=== PATIENT | female | born 2000 | race Caucasian/White ===

== ENCOUNTER → 2019-10-07 16:41 | Outpatient (CLI) | payer BC, SELFPAY ==
[2019-10-07 15:24] VITALS: BMI 43.2
[2019-10-14 15:34] LABS: HPV Reflexed? NOT INDICATED
== END ==
PROVIDERS: Family Provider Family Medicine; PCP Family Medicine; Referring Provider Obstetrics & Gynecology; Visit Provider Obstetrics & Gynecology
DX: Z12.4 Encounter for screening for malignant neoplasm of cervix (principal)
CPT/HCPCS: 88175; G0145

== ENCOUNTER → 2020-11-01 16:48 | Outpatient (CLI) | payer BC, SELFPAY ==
[2020-11-01 15:01] VITALS: BMI 49.3
[2020-11-04 09:50] LABS: HPV Reflexed? NOT INDICATED
== END ==
PROVIDERS: Visit Provider Obstetrics & Gynecology
DX: Z12.4 Encounter for screening for malignant neoplasm of cervix (principal)
CPT/HCPCS: 88175; G0145

== ENCOUNTER 2022-02-20 18:18 | Outpatient (CLI) | payer BC, SELFPAY ==
[2022-02-26 15:58] LABS: HPV Reflexed? NOT INDICATED
== END 2022-02-20 23:59 | disposition home or self-care (01) ==
PROVIDERS: Visit Provider Obstetrics & Gynecology
DX: Z12.4 Encounter for screening for malignant neoplasm of cervix (principal)
CPT/HCPCS: 88175; G0145

== ENCOUNTER → 2023-02-28 | Outpatient (CLI) | payer BC, SELFPAY ==
--- NOTE | 2023-02-28 08:53 | US_ITS ---
STUDY: ULTRASOUND OF THE FEMALE PELVIS - COMPLETE REASON FOR EXAM: Female, 23 years old. Pelvic pain/aub LMP: February 25, 2023. TECHNIQUE: Transvaginal TECHNICAL QUALITY: Adequate. COMPARISON: None. FINDINGS: The uterus is anteverted and is in a midline position. The uterus measures 8.7 cm x 4.9 cm x 4.5 cm. There is a Nabothian cyst of the cervix. The endometrium measures 4 mm in thickness, and is hyperechoic. There is no demonstrated endometrial mass. There is no demonstrated myometrial mass. I.U.D. - The patient does not have an I.U.D. The right ovary is visualized. The right ovary measures 2.9 cm x 1.9 cm x 1.8 cm. There is no right ovarian cyst or ovarian mass. There is no visualized right adnexal mass or complex lesion. There is normal arterial and normal venous vascularity. The left ovary is visualized. The left ovary measures 3.3 cm x 2.9 cm x 1.6 cm. There is no left ovarian cyst or ovarian mass. There is no visualized left adnexal mass or complex lesion. There is normal arterial and normal venous vascularity. There is no fluid in the cul-de-sac. US/Transvaginal Non- IMPRESSION: Normal menopausal female pelvis. Electronically Signed: Baudilio Petersen MD at 15:36 EDT ,
== END | disposition home or self-care (01) ==
LOC: US 08:49
PROVIDERS: Visit Provider Obstetrics & Gynecology
DX: R10.2 Pelvic and perineal pain (principal)
CPT/HCPCS: 76830; 93976

== ENCOUNTER 2024-01-21 06:03 | Day surgery (SDC) | payer BC, SELFPAY ==
[2024-01-21] VITALS (10 sets, daily range): BP systolic 105–149; BP diastolic 61–98; PULSE 86–102; RESP 14–18; TEMP 36.2–36.8; O2SAT 94–100; BMI 44.1
--- OUTSIDE RECORDS SUMMARY | 2024-01-21 06:07 | XMS RPT_ITS | CCD ---
Author Name Unknown Address [facility] [place] [address] Organization [facility] Care Team Providers Care Supervisor Painting Shipyard Name Role Phone AMERICA Wagner RN, Lenora Holder Unavailable Unavailviridiana Hollis NP, Cindi Lorenzo Unavailable Gisela, Yvette Martel Unavailable Unavailable Felgar, Yvette C Unavailable Unavailable TESTRAKE, CORTNEY Unavailable Unavailable TESTRAKE, CORTNEY Unavailable Unavailable TESTRAKE, CORTNEY Unavailable Unavailable TESTRAKE, CORTNEY Unavailable Unavailable TESTRAKE, CORTNEY Unavailable Unavailable JARON LOWE Consulting Unavailable MCKINLEY COPPOLA PA-C Attending Delfino RICHARD MD, SUDHEER Primary Care Unavailable MCKINLEY COPPOLA PA-C Attending Delfino RICHARD MD, SUDHEER Primary Care Unavailable JOSE MANUEL KEYS, SUDHEER Attending Unavailable JOSE MANUEL KEYS, SUDHEER Primary Care Unavailable JOSE MANUEL KEYS, SUDHEER Attending Unavailable JOSE MANUEL KEYS, SUDHEER Primary Care Unavailable Allergies Allergy Classification Reported Allergen(s) Allergy Type Date of Onset Reaction(s) Facility (4 sources) sulfamethoxazole / trimethoprim Drug Allergy 7 unsure [facility] [place] (1 source) sulfamethoxazole; Translations: [SULFAMETHOXAZOLE] Drug Allergy 3 AOF [facility] Repository Medications Completed/Discontinued Medications Medication Drug Class(es) Dates Sig (Normalized) Sig (Original) acetaminophen 325 mg oral tablet (4 sources) Start: 10-21-2017 TYLENOL 325 MG TABS as needed ACETAMINOPHEN [id number] Yvette Higgins levonorgestrel 0.830799 mg/hr intrauterine system (4 sources) Progestin, Progestin-containi ng Intrauterine Device Start: 10-21-2017 MIRENA (52 MG) 20 MCG/24HR IUD 05/2017 LEVONORGESTREL [id number] Yvette Higgins Problems Active Problems Problem Classification Problem Date Documented Da te Episodic/Chronic Gastritis and duodenitis (2 sources) Other gastritis without bleeding; Translations: [Other gastritis without bleeding] Onset: 10-23-2023 Episodic Other nutritional; endocrine; and metabolic disorders (2 sources) Body mass index (BMI) 50.0-59.9, adult; Translations: [Body mass index [BMI] 50.0-59.9, adult] Onset: 03-14-2023 Chronic Past or Other Problems Problem Classification Problem Date Documented Date Episodic/Chronic Contraceptive and procreative management (4 sources) IUD check; Translations: [Encounter for routine checking of intrauterine contraceptive device] Onset: 10-21-2017 10-21-2017 Episodic Immunizations and screening for infectious disease (2 sources) Contact with and (suspected) exposure to viral hepatitis; Translations: [Contact with and (suspected) exposure to viral hepatitis] Onset: 03-14-2023 Episodic Unclassified (1 source) EAR PAIN Onset: 05-24-2023 Results Test Name Value Interpretation Reference Range Facil ity Vital Signs Date Time Vital Sign Value Performing Clinician Nae riddle 10-21-2017 13:42-0500 BMI (Body Mass Index) 43.67 kg/m2 Yvette Higgins [facility] [place] 10-21-2017 13:42-0500 BP Diastolic 68 mm[Hg] Yvette Higgins [facility] 10-21-2017 13:42-0500 BP Systolic 124 mm[Hg] Yvette Higgins [facility] 10-21-2017 13:42-0500 Height 171.45 cm Yvette Higgins [facility] 10-21-2017 13:42-0500 Weight 128.37 kg Yvette Higgins [facility] Encounters Encounter Date Encounter Type Care Provider Facility Start: 10-23-2023 End: 10-28-2023 ambulatory MCKINLEY COPPOLA PA-C Facility:[facility] Start: 05-24-2023 End: 05-24-2023 Emergency department patient visit JARON LOWE Facility:[facility] Start: 03-14-2023 End: 03-19-2023 Encounter for general adult medical examination with abnormal findings SUDHEER RICHARD MD Facility:[facility] Start: 03-14-2023 End: 03-19-2023 ambulatory SUDHEER RICHARD MD Facility:[facility] Start: 12-18-2017 End: 12-18-2017 Ambulatory CORTNEY BRENNER [facility] Start: 12-05-2017 End: 12-10-2017 Ambulatory CORTNEY BRENNER [facility] Start: 11-20-2017 End: 11-20-2017 Ambulatory CORTNEY SHENBRITTON [facility] Plan of Treatment Date Care Activity Detail Author Start: 10-31-2017 End: 10-31-2017 Appointment Appointment [facility] Work Phone: Start: 10-21-2017 End: 10-21-2017 Us pelvic nonobstetric real-time image complete US Pelvis [facility] [place] Start: 10-21-2017 End: 10-21-2017 Us transvaginal US Transvaginal [facility] Start: 10-21-2017 End: 10-21-2017 Appointment Appointment [facility] Payers Date Payer Category Payer Unknown [id number] 1998 Unknown [id number] 1998 Unknown [id number] [id number] 1998 Unknown [id number] [id number] [id number] 1998 Unknown [id number] 2.16.8 [id number] Unknown [id number] 2.16.8 [id number] Summary Purpose Family History No Family History Records FoundNo Family History Records FoundNo Family History Records Found Advance Directives No Advanced Directives Records FoundNo Advanced Directives Records FoundNo Advanced Directives Records Found Additional Source Comments INFORMATION SOURCE (unrecogn ized section and content) DATE CREATED AUTHOR AUTHOR'S ORGANIZ ATION 05/25/2023 [facility] DATE CREATED AUTHOR AUTHOR'S ORGANIZ ATION 10/28/2023 [facility] ([place]) FOR RECORDS PERTAINING TO PATIENTS WHO ARE OR HAVE BEEN ENROLLED IN A CHEMICAL DEPENDENCY/SUBSTANCEABUSE PROGRAM, SOME INFORMATION MAY BE OMITTED. This clinical summary was aggregated from multiple sources. Caution should be exercised in using it in the provision of clinical care. This summary normalizes information from multiple sources, and as a consequence, information in this document may materially change the coding, format and clinical context of patient data. In addition, data may be omitted in some cases. CLINICAL DECISIONS SHOULD BE BASED ON THE PRIMARY CLINICAL RECORDS. [facility]. provides no warranty or guarantee of the accuracy or completeness of information in this document.
[2024-01-21] MEDS: Lactated Ringers 1,000 ML 15 ML IV (06:35)
[2024-01-21 06:43] LABS: Hematocrit 42.1 % (37-47); Hemoglobin 13.6 g/dL (12.0-15.0); Mean Corp Hgb Conc 32.3 g/dL (32-36); Mean Corpuscular Hgb 29.4 pg (27.0-32.0); Mean Corpuscular Volume 90.9 fL (81-99); Mean Platelet Vol. 10.3 fl (6.2-12.0); Platelet Count 257 K/mm3 (150-450); RBC Distribution Width CV 14.3 % (11.6-14.6); RBC Distribution Width SD 47.2 fl (35.1-43.9); Red Blood Count 4.63 M/mm3 (4.2-5.4); White Blood Count 7.9 K/mm3 (4.4-11.0)
[2024-01-21 06:45] LABS: Internal QC Validated? YES +Cl - CLEAR BKGD; Pregnancy, Urine Negative Negative
--- NOTE | 2024-01-21 07:27 | PCM.HP.BLA ---
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 Is patient in pain?: No Allergies sulfamethoxazole [From Bactrim] Allergy (Intermediate, Verified 12/05/23 11:11) allergytrimethoprim [From Bactrim] Allergy (Intermediate, Verified 12/05/23 11:11) allergy Medications bupropion HCl 300 mg 24 hr tablet, extended release 300 mg PO QAM #30 tabs 10/22/23 [Rx Confirmed 12/05/23] Is last menstrual period known: No Post menopausal: No Patient : No : No PFSH Medical History Anxiety and depression Anxiety with depression Family History Grandmother Heart diseaseGrandfather Heart disease Social History Smoking Status: Never smoker alcohol intake: current details: occasionally substance use type: does not use caffeine: Yes what type of physical activity do you participate in: aerobics frequency: 3-4 times per week duration: 45-60 minutes/day seatbelt use: always do you feel safe at home: Yes additional social history: 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 desired sterilization. Female Reproductive History Menopausal Symptoms: No hot flashes, No night sweats, No difficulty concentrating and No change in libido History 0 Elective abortions Hx Para Spontaneous abortions Hx # Term Pregnancies Ectopic pregnancies Hx # Pregnancies Multiple births # of living children ROS Const Constitutional: Reports as per HPI; Denies fatigue, increased appetite, poor appetite, night sweats, weight gain or weight loss ENT ENT: Reports system reviewed and no additional complaints, except as documented Cardio Card: Denies chest pain Resp Resp: Denies cough or dyspnea GI GI: Reports as per HPI; Denies abdominal pain, bloating, constipation, nausea or vomiting : Reports as per HPI and other; Denies difficulty voiding, dysuria, hematuria, hot flashes, nipple discharge, pelvic pain, prolapse symptoms, urinary frequency, urinary incontinence, urinary urgency, vaginal discharge, vaginal dryness, vaginal odor or vaginal pruritus Musc Musc: Denies arthralgias, back pain or muscle weakness Skin Skin/Breast: Denies changing lesions, breast mass, breast pain, breast skin changes or nipple discharge Neuro Neuro: Reports system reviewed and no additional complaints, except as documented Psych Psych: Denies anxiety, change in libido, depression or difficulty concentrating Endo Endo: Denies cold intolerance, excessive sweating, heat intolerance or polydipsia Tony/Lymph Hematologic/Lymphatic: Denies easy bleeding, Denies easy bruising and Denies lymphadenopathy Exam Const General: cooperative, healthy appearing, comfortable and no acute distress Orientation: alert HENID Head: normal to inspection and normocephalic Ears: hearing grossly normal bilaterally and external ears normal Nose: external nose normal and nares normal Face and sinus: normal facial exam Neck Neck: normal visual inspection and no lymphadenopathy Thyroid: thyroid normal Chest Chest palpation & inspection: normal inspection of the chest Resp Effort & Inspection: normal respiratory effort Auscultation: clear to auscultation bilaterally Cardio Rate: regular rate Rhythm: regular rhythm Heart Sounds: S1 normal and S2 normal GI Inspection: normal to inspection and non-distended Palpation: soft and no hepatosplenomegaly Musc Other: gross motor intact no deficits, full bilateral strength Skin General: no rashes or lesions noted Neuro General: patient alert, patient awake, moves all extremities and no focal motor deficits Motor: muscle tone normal throughout Extrem General: normal to inspection and no pedal edema Psych Appearance: grossly normal Mental Status: mental status grossly normal Affect: normal affect Speech and Movement: speech and movement normal Coding Level of Care Code No Charge Diagnoses Sterilization Z30.2 Assessment and Plan Assessment and Plan (1) Sterilization: Status: Acute Comment: laparosocpic bs Plan After discussing the patient's diagnosis and treatment plan options, patient wishes to proceed with surgical management. I have discussed with the patient the risks, benefits, and alternatives of the procedure which include but are not limited to risks of anesthesia, bleeding, infection, possible damage to bowel, bladder, or surrounding vasculature which could lead to additional surgery to evaluate any complications. Patient agrees to procedure and wishes to proceed. ACOG/uptodate references given for additional information regarding procedure. UPDATE- I have seen the patient and performed any clinically relevant updates to the history and physical exam. Manju Valles MD
[2024-01-21] MEDS: Bupivacaine 0.25% 30 ML Vial (09:05)
--- NOTE | 2024-01-21 10:45 | PCM.OPRPT ---
Problems Associated Problem List Diagnoses (1) Sterilization: (2) Class 3 obesity: Report of Operation Date of Procedure: 01/21/24 Pre-Operative Diagnosis: see problem list Post-Operative Diagnosis: same Surgery/Procedure Performed:: Laparoscopic tubal ligation Filshie clips Description of Surgical Findings:: nl uterus tubes ovaries Surgeon: Manju Valles Type of Anesthesia: General and Local Special Medications: Floseal at umbilicus Specimen's removed: None Drains: none Estimated Blood Loss (mL): 50 Fluids Replaced: crystalloid Description of Procedure: Patient was taken in the operating room and was placed under general anesthesia was prepped and draped in normal sterile fashion in the dorsal lithotomy position. Bladder was drained of clear urine and SCDs were on preoperatively. Uterus was sounded and a uterine manipulator was placed after dilating. Attention was then paid to the abdominal portion of the procedure and the umbilicus was elevated with towel clamps and injected with Marcaine and after a 5 mm incision was made and the Veress needle was entered into the abdomen unable to be confirmed to be intra-abdominal due to maternal body habitus and deep umbilicus. Attempt was made with also followed larger Veress needle but the planes were still not felt to be easily reached and therefore this approach was aborted. Attempt was then made in the left upper quadrant with the regular Veress needle however it was not felt to be deep enough in the correct tissue plane was not entered. The decision was then made to go back to the umbilicus and proceed with the Barrios technique. Direct dissection was made through a supraumbilical incision down to the level of the fascia. Fascia was identified and elevated and incised. Abdomen was entered and barrios trocar was placed and the abdomen was insufflated with CO2 gas . A 5 mm port suprapubically was placed under direct visualization. Uterus was well visualized and bilateral fallopian tubes identified and bilateral Filshie clips were applied across the mid interstitial portion of the fallopian tube without complication. Excellent hemostasis was noted. Liver and upper abdomen were visualized notably within normal limits and no other gross abnormalities were seen in the abdomen. All instruments removed from the abdomen after gas was desufflated. Fascia was closed directly with 0 Vicryl. Port sites were closed with 4-0 Monocryl and Dermabond. Additional bleeding was noted at the umbilical site therefore this was reopened and additional sutures across the fascia and rectus bellies were used. Copious irrigation and then Floseal was applied. Excellent hemostasis was noted. The skin was then reclosed at the umbilicus and Dermabond applied. Pressure dressing applied to the area and all instruments removed from the vagina and patient was awoken and taken recovery in stable condition. Grafts/Implants Used: none Procedure Start Time: 08:11 Procedure Stop Time: 09:32 Complications none Admit VTE Documentation VTE Present on Admission: No VTE Mechan Device Prophylaxis: SCD's Multi Select Codes Urinary/Genital Urinary/Genital CPT Codes: 93763 OCCLUDE FALLOPIAN TUBE BY DEVICE
--- NOTE | 2024-01-21 10:47 | DCINST_ITS ---
Discharge Instructions Diet Discharge Diet: No restrictions Activity Discharge Activity: Return to Normal Activity, May Not Drive (for 2 weeks or while taking narcotic pain meds.), May Shower and May Take a Tub Bath (in 7 days) May resume sexual activity in: 1 week Weight Bearing Status: Full weight bearing Dressing / Incision Call your doctor if your incision/area has: Continuous Slow Oozing, Sudden Increased Bleeding, Increased Pain/ Swelling, Increased Redness and Foul Smelling Discharge Call your doctor if you observe: Fever of 101 or Higher, Using more than 1 pad per hour, Shortness of breath, Chest pain and Uncontrolled pain Suture Line Care: Avoid Pulling/Pushing and Avoid Pinching/Bending Remove Dressing in: 1 week (if present) Cleanse incision/area with: Soap & Water and Keep Dressing Clean & Dry Follow Up Care When: Call to make an appointment with your doctor for a fu/incision check in 1- 2 weeks. Test Results: Test results from this visit will be discussed in further detail at your follow- up appointment, if applicable. Discharge Plan Admission Attending Provider: Manju Valles Primary Care Provider: SUDHEER RICHARD Discharge Orders/Prescriptions Prescriptions: New oxycodone-acetaminophen [Percocet] 5-325 mg tablet 1 tab PO Q6H PRN (Reason: pain) 7 Days Qty: 20 0RF naproxen [naproxen] 500 mg tablet 500 mg PO BID PRN PRN (Reason: Pain) Qty: 30 1RF No Action omeprazole 20 mg capsule,delayed release(DR/EC) 20 mg PO DAILY Patient Comments: TAKE 1 CAPSULE BY MOUTH ONCE DAILY 30 MINUTES BEFORE MORNING MEAL FOR GASTROESOPHAGEAL REFLUX DISEASE sucralfate 1 gram tablet 1 g PO .4 TIMES DAILY Patient Comments: TAKE 1 TABLET BY MOUTH ON AN EMPTY STOMACH 4 TIMES DAILY ONE HOUR BEFORE MEALS AND AT BEDTIME bupropion HCl 300 mg tablet extended release 24 hr 300 mg PO QAM Qty: 30 12RF Referrals / Follow Up: Care Physician,No Primary [Non-Staff] - Disposition Disposition (needs filled in before D/C Order can be placed): Home, Self Care
[2024-01-21] MEDS: Oxycodone/Apap 5/325 Tablet PO (11:48)
== END 2024-01-21 12:45 | disposition home or self-care (01) ==
LOC: SDC 06:05 → AC 06:06
PROVIDERS: Referring Provider Obstetrics & Gynecology; Visit Provider Obstetrics & Gynecology
PROC: (CPT 58661; principal; 2024-01-21 07:15)
DX: Z30.2 Encounter for sterilization (principal); Z68.41 Body mass index [BMI] 40.0-44.9, adult; E66.9 Obesity, unspecified; F41.9 Anxiety disorder, unspecified; F32.A Depression, unspecified; Z79.899 Other long term (current) drug therapy
CPT/HCPCS: 58615; 00851; 81025; 85027; 86850; 86900; 86901; J7120; J2405

== ENCOUNTER 2024-01-25 16:58 | Emergency (ER) | payer BC, SELFPAY ==
[2024-01-25 17:00] VITALS: BP 150/105; PULSE 142; RESP 18; TEMP 37.9; O2SAT 95; BMI 43.9
--- NOTE | 2024-01-25 17:30 | EKG12_ITS ---
Test Reason : POST OP PROBLEM Blood Pressure : / mmHG Vent. Rate : 133 BPM Atrial Rate : 133 BPM P-R Int : 132 ms QRS Dur : 090 ms QT Int : 292 ms P-R-T Axes : 036 017 055 degrees QTc Int : 434 ms Sinus tachycardia Cannot rule out Anterior infarct , age undetermined Abnormal ECG Confirmed by CHYNA KEYS, SAILAJA ([id number]), purchasing expeditor FRANKY WILDER ([id number]) on 01/27/2024 9:32:16 AM Referred By: Confirmed By:SAILAJA CLEMENTE MD
--- NOTE | 2024-01-25 17:30 | CT_ITS ---
STUDY: CT ABDOMEN AND PELVIS WITH CONTRAST REASON FOR EXAM: Female, 23 years old. abd pain post up Tubal w/ clips RADIATION DOSAGE (If Supplied By Facility): CTDIvol = ( 21.75 ) mGy, DLP = ( 1952.02 ) mGycm TECHNIQUE: Transaxial images were obtained from the dome of the diaphragm to the symphysis pubis without oral contrast. IV 100mL Isovue-370 was administered. Sagittal and coronal images were reconstructed. Individualized dose optimization techniques were used for this CT. COMPARISON: None. FINDINGS: Small bilateral pleural effusions with some bibasilar atelectasis. Small pericardial effusion. Normal liver. Normal gallbladder and extrahepatic biliary system. There is moderate splenomegaly. Normal pancreas. Normal bilateral adrenal glands. Normal right kidney. Normal left kidney. Normal visualized stomach. Normal small intestine. Normal colon. There is non-visualization of the appendix. Normal abdominal aorta. Normal inferior vena cava. Normal retroperitoneum. Normal urinary bladder. Status post recent bilateral tubal ligation with subcutaneous emphysema within the anterior abdominal wall, a tiny amount of pneumoperitoneum, and a small amount of free fluid in the pelvis. Normal abdominal wall. Normal osseous structures. CT/Abdomen/Pelvis W IV Cont ONLY IMPRESSION: 1. Status post recent bilateral tubal ligation with postoperative gas and fluid but no well-defined postoperative fluid collection. 2. Moderate splenomegaly. 3. Small bilateral pleural effusions with bibasilar atelectasis. 4. Small pericardial effusion. Electronically Signed: Herve Soto MD at 19:31 EST ,
--- NOTE | 2024-01-25 17:33 | EX.ED.DYSGE1 ---
HPI History of Present Illness Chief Complaint: Fever Informant: patient and spouse/S.O. Onset/Context/Timing Onset: Days Context: Gradual Onset Timing: Continuous Current Severity: Moderate Maximum Severity: Moderate Narrative Narrative: 23-year-old female no seen past medical history on Saturday had tubal ligation done by Dr. Manju Valles of [employer] using clips. Patient was doing well. On started having low-grade fever 100.3 with low back pain and abdominal pain. She denies any cough. She also states that she has some dysuria. Her temperature at home has been as high as 101.5. Prior similar symptoms: No Recent Illness/Hospitalization: No PFSH PFSH Medical History Alcohol use Anxiety Anxiety and depression Anxiety with depression Depression History of ulceration MRSA infection Non-smoker Restless legs Wears glasses Home Medications bupropion HCl 300 mg 24 hr tablet, extended release 300 mg PO QAM #30 tabs 10/22/23 [Rx Last Taken Unknown] omeprazole 20 mg capsule,delayed release 20 mg PO DAILY 01/13/24 [History Last Taken Unknown] sucralfate 1 gram tablet 1 g PO .4 TIMES DAILY 01/13/24 [History Last Taken Unknown] naproxen 500 mg tablet 500 mg PO BID PRN PRN Pain #30 tabs 01/21/24 [Rx Last Taken Unknown] oxycodone-acetaminophen 5 mg-325 mg tablet (Percocet) 1 tab PO Q6H PRN pain 7 days #20 tabs 01/21/24 [Rx Last Taken Unknown] oxycodone 5 mg capsule 5 mg PO Q4H PRN pain 3 days #10 caps 01/25/24 [Rx Last Taken Unknown] Allergy/AdvReac Type Severity Reaction Status Date / Time sulfamethoxazole Allergy Intermediate allergy Verified 01/25/24 17:00 [From Bactrim] trimethoprim [From Bactrim] Allergy Intermediate allergy Verified 01/25/24 17:00 Family History Grandmother Heart disease Grandfather Heart disease Social History Smoking Status: Never smoker alcohol intake: current details: occasionally substance use type: does not use caffeine: Yes what type of physical activity do you participate in: aerobics frequency: 3-4 times per week duration: 45-60 minutes/day seatbelt use: always do you feel safe at home: Yes 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 Abdominal pain. Back pain. Dysuria. Review of Systems ROS Unobtainable: Denies due to encephalopathy Constitutional Constitutional ED: Reports chills and fever(s) Eyes Eyes: Denies blurry vision ENT ENT ED: Denies ear pain Cardiovascular Cardiovascular: Denies chest pain or palpitations Respiratory/Chest Respiratory/Chest: Reports other Details: Patient has periumbilical incisional pain when she breathes but denies shortness of breath or chest pain or any hemoptysis. ; Denies cough or dyspnea Gastrointestinal Gastrointestinal: Reports abdominal pain and nausea; Denies constipation, diarrhea, melena or vomiting Genitourinary Genitourinary ED: Reports dysuria and hematuria Musculoskeletal Musculoskeletal: Reports back pain; Denies arthralgias Integumentary Denies abscess Neurologic Neurologic: Denies headache(s) Psychiatric Psychiatric: Denies anxiety Endocrine Endocrinology: Denies cold intolerance Hematologic/Lymphatic Hematologic/Lymphatic: Reports none Allergic/Immunologic Allergic/Immunologic ED: Denies mouth swelling, tongue swelling or urticaria EXAM Physical Exam Narrative Exam Narrative: 23-year-old female vital signs are stable other than she is tachycardic 142 and has a temperature of 100.3. Pulse ox 95% on room air no signs hypoxia. H EENT exam dry mucous membranes. Neck nontender no JVD. Lungs clear to auscultation bilaterally. Heart tachycardic no murmur. Chest wall nontender. Abdomen soft tender primarily under her umbilicus. She has a well-healed surgical incision and dressing on. No discharge. No cellulitis. No distention. No right upper or right lower quadrant tenderness. Moving all 4 extremities. Calves are nontender without edema or cords. Skin unremarkable. No rashes. Back she has right CVA tenderness. Neurologically she is awake and alert with no focal motor deficits. Clinically she looks like she is ill. Const Vital Signs: 01/25/24 17:00 01/25/24 17:40 01/25/24 19:59 Temperature 100.3 F H 99 F Temperature Source Temporal Oral Pulse Rate 142 H 113 H Respiratory Rate 18 16 Respiratory Effort Normal Respiratory Pattern Normal Blood Pressure 150/105 H 144/78 H Blood Pressure Mean 120 100 Pulse Ox 95 97 Oxygen Delivery Method Room Air Room Air Positive well nourished and well developed; Negative for cachectic, contractures or unkempt General Appearance ED: well developed; Negative for unkempt, cachectic, contractures, cyanotic, diaphoretic, NAD or pallor Nutritional Appearance: Negative for cachectic HEENT Reports dry mucous membranes; Denies moist mucous membranes Negative for trauma or tenderness Mouth ED: Yes dry mucous membranes Mouth: dry mucous membranes Eyes PERRL and EOMs intact bilaterally General Eye ED: Negative for pale conjunctiva or scleral icterus Neck no lymphadenopathy, supple and no JVD General: Negative for tenderness Chest Wall inspection of chest normal and palpation of chest normal Chest: Negative for other Resp normal respiratory effort and clear to auscultation bilaterally Effort and Inspection: Negative for retractions Auscultation: Negative for rales, rhonchi, wheezes or diminished lung sounds Cardio regular rhythm, S1 normal heart sound, S2 normal heart sound and no murmurs; Negative for regular rate Rate: tachycardic GI normal to inspection, nondistended, normoactive bowel sounds, non-distended and no masses; Negative for non-tender GI Narrative: Periumbilical tenderness. Well-healing surgical incision with dressing. No cellulitis. No distention. Both the right upper and right lower quadrants are unremarkable. No peritoneal signs. Auscultation: normoactive bowel sounds Palpation: soft and tender; Negative for guarding, splenomegaly, mass or rebound tenderness present Back/Spine Negative for no CVA tenderness Back/Spine Narrative: Right CVA tenderness. General Back: CVA tenderness Thoracic Spine / Upper Back: Negative for thoracic spinal tenderness Lumbar Spine / Lower Back: Negative for lumbar spinal tenderness Extremity normal to inspection General Extremety ED: Negative for edema or tenderness General Extremity: Negative for edema Neuro oriented x3 and CN's II-XII intact bilaterally Sensorium / Orientation: alert; Negative for orientation impaired, lethargic or stuporous Motor Exam: strength 5/5 throughout Psych mental status grossly normal Appearance: Negative for unkempt Attitude: No agitated Mood & Affect: tearful; Negative for depressed or anxious Skin no rashes or lesions noted and no wounds General Skin Exam: Negative for jaundice or pallor Lesions: No lesion noted Rashes: No rashes noted Trauma: Negative for abrasion Wounds: Negative for wounds noted MDM MDM MDM Narrative Medical decision making narrative: 23-year-old female status post tubal ligation done with clips on Saturday. Started feeling poorly with a fever on . She has back and abdominal pain with the fever. May be a viral syndrome. Could be a postop infection or could be a UTI or pyelonephritis versus other etiologies. CAT scan labs are pending. IV fluids for clinical dehydration. Toradol for pain and fever and Zofran for nausea. Repeat exam at 6:35 PM. Patient is showing improvement After IV fluids, Toradol and Zofran. We discussed her initial lab work. We are waiting on the CAT scan read and her urinalysis. Patient doing much better on repeat exam at 8:25 PM. We did pull back the bandage and her umbilical incision is dry and clean with no redness or discharge. No cellulitis. I went over her test results with her. There is really no specific finding. I spoke to the nurse manager file on-call for Dr. Oni Ryan. She sent her in due to the abdominal pain and being postop. We went over the patient's lab results. Both she and I are comfortable with the patient being discharged home as are her and her and they will follow-up with Dr. Manju Valles's office on Saturday. Fluids and rest. Tylenol and Motrin. I did write her for 10 more oxycodone for pain. History & Record Review Discussion w/independent historian: Patient and Family Additional record(s) reviewed:: Prior inpatient record, Prior outpatient record, Prior ED visit and Prior labs Lab Data Attestation: I reviewed the patient's lab results. Lab results narrative: CBC normal. White count of 4. H&H 13 and 38. Platelets 171. Electrolytes show sodium 133. Gap 6. Normal BUN of 8 and creatinine is 0.71. Liver enzymes unremarkable. Lipase 12. Serum test negative. Chest x-ray normal. COVID, flu and RSV are all negative. Labs: Laboratory Results - last 24 hr 01/25/24 01/25/24 17:50 18:50 WBC 4.4 RBC 4.40 Hgb 13.0 Hct 38.8 MCV 88.2 MCH 29.5 MCHC 33.5 RDW Std Deviation 46.4 H RDW Coeff of Gilma 14.3 Plt Count 171 MPV 10.3 Immature Gran % (Auto) 0.200 Neut % (Auto) 78.4 H Lymph % (Auto) 15.5 L [place] % (Auto) 5.7 Eos % (Auto) 0.0 Baso % (Auto) 0.2 Absolute Neuts (auto) 3.4 Absolute Lymphs (auto) 0.68 L Nucleated RBC % 0 Sodium 133 L Potassium 3.7 Chloride 103 Carbon Dioxide 24.0 Anion Gap 6 BUN 8 Creatinine 0.71 Estim Creat Clear Calc 168.16 Est GFR (MDRD) Af Amer 128 Est GFR (MDRD) Non-Af 106 BUN/Creatinine Ratio 11.2 Glucose 106 Calcium 8.9 Total Bilirubin 0.40 AST 32 ALT 51 Alkaline Phosphatase 57 Total Protein 7.2 Albumin 3.1 L Globulin 4.1 Albumin/Globulin Ratio 0.8 L Lipase 12 L Serum , Qual NEGATIVE Urine Color Yellow Urine Clarity Cloudy Urine pH 7.0 Ur Specific [place] 1.005 Urine Protein 100 H Urine Glucose (UA) Normal Urine Ketones Negative Urine Occult Blood 250 H Urine Nitrite Negative Urine Bilirubin Negative Urine Urobilinogen Normal Ur Leukocyte Esterase 500 H Urine RBC 0-5 SEEN Urine WBC 5-10 SEEN Ur Squamous Epith Cells 10-25 SEEN Urine Bacteria 1+ Urine Mucus 0 SEEN Radiography Chest X-Ray - ED: 1 View, Read by ED Physician, Heart, Lungs, Mediastinum, Bony Structures and No Acute Disease Diagnostic Testing: Clinical Impression(s) from Imaging Studies Abdomen/Pelvis CT 01/25/24 17:30 IMPRESSION: 1. Status post recent bilateral tubal ligation with postoperative gas and fluid but no well-defined postoperative fluid collection. 2. Moderate splenomegaly. 3. Small bilateral pleural effusions with bibasilar atelectasis. 4. Small pericardial effusion. Electronically Signed: Herve Soto MD at 19:31 EST , Chest X-Ray 01/25/24 18:00 IMPRESSION: Normal x-ray examination of the chest. Electronically Signed: Herve Soto MD at 19:22 EST , Chest x-ray, portable, single view interpreted by myself shows no acute abnormality. Normal cardiac silhouette. Normal lung hayes. No infiltrates. Rhythm Strip Rhythm Strip: Sinus Tach Rate: 133 Ectopy: None EKG Initial EKG: Attestation: I personally reviewed and interpreted this EKG as follows: Interpretation: No Acute Injury Pattern and Sinus Tachycardia Comments: Sinus tachycardia rate of 133 no acute signs of MO or ischemia. Discharge Plan Triage Chief Complaint: Fever ED Provider: Cyrus Harrison Dx/Rx/DC Orders Clinical Impression: Acute postoperative abdominal pain, Fever, History of tubal ligation Instructions: Abdominal Pain Prescriptions: New oxycodone 5 mg capsule 5 mg PO Q4H PRN (Reason: pain) 3 Days Qty: 10 0RF No Action omeprazole 20 mg capsule,delayed release(DR/EC) 20 mg PO DAILY Patient Comments: TAKE 1 CAPSULE BY MOUTH ONCE DAILY 30 MINUTES BEFORE MORNING MEAL FOR GASTROESOPHAGEAL REFLUX DISEASE sucralfate 1 gram tablet 1 g PO .4 TIMES DAILY Patient Comments: TAKE 1 TABLET BY MOUTH ON AN EMPTY STOMACH 4 TIMES DAILY ONE HOUR BEFORE MEALS AND AT BEDTIME oxycodone-acetaminophen [Percocet] 5-325 mg tablet 1 tab PO Q6H PRN (Reason: pain) 7 Days Qty: 20 0RF naproxen [naproxen] 500 mg tablet 500 mg PO BID PRN PRN (Reason: Pain) Qty: 30 1RF bupropion HCl 300 mg tablet extended release 24 hr 300 mg PO QAM Qty: 30 12RF Primary Care Provider: SUDHEER RICHARD Referrals: Manju Valles MD [Med Staff - Active Staff] - As soon as possible (Call their office to follow-up with them on Saturday.) NOT,DEFINED [Non-Staff] - Activity Restrictions/Additional Instructions: Alternate Tylenol and Motrin for fever. Plenty of fluids and rest. Oxycodone for more severe pain. Call and follow-up with Dr. Oni Ryan's office on Saturday. I spoke to the nurse manager file prabhjot. Return to the emergency department or hospital closest to your home if you are feeling worse. Disposition Disposition: Home, Self Care
[2024-01-25] MEDS: 0.9% Normal Saline (1000mL) 1,000 ML 1000 ML IV (17:47)
[2024-01-25] MEDS: Ondansetron 4 MG/2 ML Vial IV (17:47)
[2024-01-25] MEDS: Ketorolac 30 MG/ML Syringe IV (17:48)
--- NOTE | 2024-01-25 18:00 | RAD_ITS ---
STUDY: X-RAY CHEST REASON FOR EXAM: Female, 23 years old. fever TECHNIQUE: Single AP portable view of the chest. COMPARISON: 08/06/2014 FINDINGS: The lungs are clear and expanded. There is no demonstrated pleural abnormality. Normal size heart. Normal mediastinum and noah. Normal visualized pulmonary arteries. Normal visualized aortic arch and descending thoracic aorta. Normal visualized thoracic spine. Normal visualized ribs, clavicles, and shoulders. There is no demonstrated abnormality of the visualized soft tissue structures of the upper abdomen. RAD/Chest 1 View (Portable) IMPRESSION: Normal x-ray examination of the chest. Electronically Signed: Herve Soto MD at 19:22 EST ,
[2024-01-25 18:01] LABS: Absolute Lymphocyte Count 0.68 X10^3/uL (0.83-4.51); Absolute Neutrophil Count 3.4 X10^3/uL (2.0-7.7); Basophil# 0.01 X10^3/uL; Basophil% 0.2 % (0-1); Hematocrit 38.8 % (37-47); Lymphocyte # 0.68 X10^3/ul (0.83-4.51); Lymphocyte % 15.5 % (19-41); Mean Corp Hgb Conc 33.5 g/dL (32-36); Mean Corpuscular Hgb 29.5 pg (27.0-32.0); Mean Corpuscular Volume 88.2 fL (81-99); Mean Platelet Vol. 10.3 fl (6.2-12.0); Monocyte# 0.25 X10^3/uL; Monocyte% 5.7 % (0-10); NRBC Flagged by Analyzer 0 % (0-5); Neutrophil # 3.43 X10^3/uL (2.7-7.7); Neutrophil % 78.4 % (47-70); Platelet Count 171 K/mm3 (150-450); RBC Distribution Width CV 14.3 % (11.6-14.6); RBC Distribution Width SD 46.4 fl (35.1-43.9); White Blood Count 4.4 K/mm3 (4.4-11.0)
[2024-01-25 18:14] LABS: Internal QC Validated? YES +Cl - CLEAR BKGD; Pregnancy, Serum, hCG Quali. NEGATIVE Negative
[2024-01-25 18:17] LABS: ALB/GLOB Ratio 0.8 RATIO (0.9-2.4); AST(SGOT) 32 U/L (15-37); Alanine Aminotransfer ALT/SGPT 51 U/L (13-56); Albumin, Serum 3.1 g/dL (3.2-5.0); Alkaline Phosphatase 57 U/L (45-117); Anion Gap 6 (5-15); BUN 8 mg/dL (7-18); BUN/Creat Ratio 11.2 RATIO (10-20); Calcium,Total 8.9 mg/dL (8.5-10.1); Chloride 103 mmol/L (98-107); Creatinine, Serum 0.71 mg/dL (0.55-1.02); EST Glomerular Filtration Rate 106 mL/min (>60); Est Glom Filt Rate - Afr Amer 128 mL/min (>60); Estimated Creatinine Clearance 168.16 ml/min; Globulin 4.1 g/dL (2.2-4.2); Glucose 106 mg/dL (74-106); Lipase 12 U/L (13-75); Potassium 3.7 mmol/L (3.5-5.1); Protein, Total 7.2 g/dL (6.4-8.2); Sodium Level 133 mmol/L (136-145)
--- OUTSIDE RECORDS SUMMARY | 2024-01-25 18:18 | XMS RPT_ITS | CCD ---
Author Name Unknown Address [id number] [place] [address] Organization [facility] Care Team Providers Care Punch Finisher Name Role Phone AMERICA Wagner RN, Lenora Holder Unavailable Unavailviridiana Hollis NP, Cindi Lorenzo Unavailable [phone] Gisela, Yvette Martel Unavailable Unavailable Felgar, Yvette [...] sulfamethoxazole / trimethoprim Drug Allergy [address] [facility] (1 source) sulfamethoxazole; Translations: [SULFAMETHOXAZOLE] Drug Allergy 3 AOF [facility] Repository Medications Completed/Discontinued Medications Medication Drug Class(es) Dates Sig (Normalized) Sig (Original) acetaminophen 325 mg oral tablet (4 sources) Start: 10-21-2017 TYLENOL 325 MG TABS as needed ACETAMINOPHEN [id number] Yvette Higgins levonorgestrel 0.691329 mg/hr intrauterine system (4 sources) Progestin, Progestin-containi ng Intrauterine Device Start: 10-21-2017 MIRENA (52 MG) 20 MCG/24HR IUD 05/2017 LEVONORGESTREL [id number] Yvette Higgins Problems Active Problems Problem Classification [...] (Body Mass Index) 43.67 kg/m2 Yvette Higgins [facility] 10-21-2017 13:42-0500 BP Diastolic 68 mm[Hg] Yvette Higgins [facility] 10-21-2017 13:42-0500 BP Systolic 124 mm[Hg] Yvette Higgins [facility] 10-21-2017 13:42-0500 Height 171.[address] [facility] 10-21-2017 13:42-0500 Weight 128.[address] [facility] Encounters Encounter Date Encounter Type Care Provider Facility Start: 10-23-2023 End: 10-28-2023 ambulatory MCKINLEY COPPOLA PA-C Facility:B Start: 05-24-2023 End: 05-24-2023 Emergency department patient visit JARON LOWE Facility:[facility] Start: 03-14-2023 End: 03-19-2023 Encounter for general adult medical examination with abnormal findings SUDHEER RICHARD MD Facility:[facility] Start: 03-14-2023 End: 03-19-2023 ambulatory SUDHEER RICHARD MD Facility:[facility] Start: 12-18-2017 End: 12-18-2017 Ambulatory CORTNEY BRENNER [facility] Start: 12-05-2017 End: 12-10-2017 Ambulatory CORTNEY BRENNER [facility] Start: 11-20-2017 End: 11-20-2017 Ambulatory CORTNEY SHENBRITTON [facility] Plan of Treatment Date Care Activity Detail Author Start: 10-31-2017 End: 10-31-2017 Appointment Appointment [facility] Work Phone: Start: 10-21-2017 End: 10-21-2017 Us pelvic nonobstetric real-time image complete US Pelvis [facility] Start: 10-21-2017 End: 10-21-2017 Us transvaginal US Transvaginal [facility] Start: 10-21-2017 End: 10-21-2017 Appointment Appointment [facility] Payers Date Payer Category Payer Unknown [id number] 1998 Unknown [id number] 1998 Unknown [id number] [id number] 1998 Unknown [id number] 1998 Unknown [id number] [id number] Unknown [id number] 2.16.8 [id number] Summary Purpose Family History No Family History Records FoundNo Family History Records FoundNo Family History Records Found Advance Directives No Advanced Directives Records FoundNo Advanced Directives Records FoundNo Advanced Directives Records Found Additional Source Comments INFORMATION SOURCE (unrecogn ized section and content) DATE CREATED AUTHOR AUTHOR'S ORGANIZ ATION 05/25/2023 [facility] DATE CREATED AUTHOR AUTHOR'S ORGANIZ ATION 10/28/2023 [facility] ([place]) FOR RECORDS PERTAINING TO PATIENTS WHO ARE [...] BE BASED ON THE PRIMARY CLINICAL RECORDS. [facility] [employer] [facility]. provides no warranty or guarantee of the accuracy or completeness of information in this document.
[2024-01-25 18:55] LABS: Mucous, Urine 0 SEEN /hpf (<or=2+)
[2024-01-25 18:57] LABS: Color, Urine Yellow (Yellow); Glucose, Dipstick Normal (Normal); Ketone-Dipstick Negative (Negative); Leukocyte Esterase-Dipstick 500 /ul (Negative); Nitrite-Dipstick Negative (Negative); Occult Blood-Urine 250 /ul (Negative); Protein-Dipstick 100 mg/dl (Negative); Specific Gravity, Urine 1.005 (1.002-1.030); Urine Bilirubin Dipstick Negative (Negative); Urine Clarity Cloudy (Clear); Urine Urobilinogen Normal (Normal)
[2024-01-25 19:06] LABS: Squamous Epithelial Cells - UA 10-25 SEEN /hpf (5-10); White Blood Cells 5-10 SEEN /hpf (0-5)
[2024-01-25 19:07] LABS: Bacteria 1+ /hpf (None Seen); Red Blood Cells-Urine 0-5 SEEN /hpf (0-5)
[2024-01-25 19:59] VITALS: BP 144/78; PULSE 113; RESP 16; TEMP 37.2; O2SAT 97
[2024-01-25 20:35] VITALS: BP 144/83; PULSE 108; RESP 18; TEMP 36.9; O2SAT 98
== END 2024-01-25 20:38 | disposition home or self-care (01) ==
PROVIDERS: Emergency Provider Emergency Medicine; Visit Provider Emergency Medicine
DX: G89.18 Other acute postprocedural pain (principal); R10.9 Unspecified abdominal pain; R50.9 Fever, unspecified; F41.9 Anxiety disorder, unspecified; F32.A Depression, unspecified; Z79.899 Other long term (current) drug therapy
CPT/HCPCS: 71045; 74177; 80053; 81001; 83690; 84703; 85025; 87631; 93005; 96361; 96374; 96375; 99283; J7030; Q9967; A4216; J2405

== ENCOUNTER → 2024-03-03 | Outpatient (CLI) | payer BC, SELFPAY ==
--- NOTE | 2024-03-03 14:03 | ECHOD_ITS ---
Reason For Study: PERICARDIAL EFFUSION Procedure This was a 2D Doppler, Color Flow transthoracic echocardiogram. Exam performed in department. Left Ventricle Normal size and thickness. The left ventricular ejection fraction is 55 %. Normal diastololic function. Right Ventricle Mildly dilated right ventricle. Atria There is mild biatrial dilatation. Mitral Valve Trivial mitral valve insufficiency. Tricuspid Valve Trivial tricuspid valve insufficiency. Right ventricular systolic pressure estimated to be 45 mmHg. Aortic Valve Trisinus/trileaflet aortic valve. Pulmonic Valve Trivial pulmonic valve insufficiency. Great Vessels Normal sized aortic root. Pericardium/Pleural Trivial pericardial effusion. MMode/2D Measurements & Calculations LVIDd: 5.4 cm IVSd: 0.80 cm Ao root diam: 2.9 cm LVIDs: 3.5 cm LVPWd: 0.92 cm RVDd: 4.0 cm FS: 35.2 % LAV(MOD-bp): 48.2 ml LVAd ap4: 35.5 cm2 LVAd ap2: 29.8 cm2 LAV(MOD-bp) Indexed: 25.6 ml/m2 LVLd ap4: 8.7 cm LVLd ap2: 7.7 cm LAV(MOD-sp2): 51.5 ml EDV(MOD-sp4): 121.1 ml EDV(MOD-sp2): 96.8 ml LAV(MOD-sp4): 45.7 ml EDV(sp4-el): 122.5 ml EDV(sp2-el): 98.0 ml LVAs ap4: 22.5 cm2 LVAs ap2: 17.6 cm2 LVLs ap4: 7.2 cm LVLs ap2: 6.2 cm ESV(MOD-sp4): 59.1 ml ESV(MOD-sp2): 42.4 ml ESV(sp4-el): 60.0 ml ESV(sp2-el): 42.3 ml EF(MOD-sp4): 51.2 % EF(MOD-sp2): 56.2 % EF(sp4-el): 51.0 % SV(MOD-sp4): 62.0 ml SV(MOD-sp2): 54.4 ml SV(sp4-el): 62.5 ml LA dimension(2D): 4.5 cm TAPSE: 2.3 cm LA A4 area: 16.6 cm2 Time Measurements MV dec time: 0.15 sec Doppler Measurements & Calculations MV E max andrey: 109.6 cm/sec Lat Peak E' Andrey: 17.3 cm/sec Med Peak E' Andrey: 12.2 cm/sec MV A max andrey: 65.6 cm/sec E/E' lat: 6.3 E/E' med: 9.0 MV E/A: 1.7 Ao V2 max: 139.8 cm/sec LV V1 max: 128.6 cm/sec PA V2 max: 126.9 cm/sec Ao max P.8 mmHg LV V1 max P.6 mmHg PA V2 mean: 96.6 cm/sec Ao V2 mean: 102.1 cm/sec LV V1 mean P.0 mmHg Ao mean P.7 mmHg LV V1 mean: 93.8 cm/sec Ao V2 VTI: 28.6 cm LV V1 VTI: 26.2 cm AV (velocity ratio): 0.92 TR max andrey: 273.1 cm/sec TR max P.8 mmHg ECHO/Echo Complete Interpretation Summary The left ventricular ejection fraction is 55 %. Mildly dilated right ventricle. There is mild biatrial dilatation. Right ventricular systolic pressure estimated to be 45 mmHg. Ordering Physician: Manju Valles Referring Physician: OTD Performed By: Tiff Cha RDCS, RVT
== END | disposition home or self-care (01) ==
PROVIDERS: Referring Provider Obstetrics & Gynecology; Visit Provider Obstetrics & Gynecology
DX: I31.39 Other pericardial effusion (noninflammatory) (principal)
CPT/HCPCS: 93306

== ENCOUNTER → 2025-05-06 | Outpatient (CLI) | payer BC, SELFPAY ==
--- NOTE | 2025-05-06 16:26 | US_ITS ---
PROCEDURE: PELVIC W/ TRANSVAGINAL 05/06/2025 REASON FOR EXAM: UTERINE CRAMPING TECHNIQUE: Transabdominal and transvaginal pelvic ultrasound. Color and spectral doppler analysis of the ovaries. COMPARISON: Pelvic ultrasound 02/28/2023. FINDINGS: Measurements: Uterus: 8.3 x 3.8 x 5.0 cm for volume of 82.8 mL Endometrial Thickness: 1.0 cm Right Ovary: 3.6 x 2.1 x 2.5 cm for volume of 10.0 mL. Left Ovary: 2.8 x 1.4 x 2.3 cm for volume of 4.9 mL. Uterus: Anteverted. Normal contour and myometrial echotexture. Endometrium: Normal echotexture. Right ovary: Normal size and echotexture. Left ovary: Normal size and echotexture. Other adnexal findings: None. Cul-de-sac: No free intraperitoneal fluid identified. DOPPLER: Color Doppler: Normal color flow doppler signal at both ovaries. Spectral Doppler: Normal arterial inflow and venous outflow signal at both ovaries. US/Pelvic w/ Transvaginal IMPRESSION: NORMAL TRANSABDOMINAL AND TRANSVAGINAL PELVIC ULTRASOUND WITH DOPPLER. Reading Location: [id number]
== END | disposition home or self-care (01) ==
LOC: US 16:23
PROVIDERS: PCP Family Medicine; Referring Provider Nurse Practitioner Family; Visit Provider Nurse Practitioner Family
DX: N94.89 Other specified conditions associated with female genital organs and menstrual cycle (principal)
CPT/HCPCS: 76830; 76856

== ENCOUNTER → 2025-05-25 | Outpatient (CLI) | payer BC, SELFPAY ==
[2025-05-29 21:46] LABS: HPV Reflexed? NOT INDICATED
== END | disposition home or self-care (01) ==
PROVIDERS: PCP Family Medicine; Referring Provider Obstetrics & Gynecology; Visit Provider Obstetrics & Gynecology
DX: Z12.4 Encounter for screening for malignant neoplasm of cervix (principal)
CPT/HCPCS: 88175; G0145